=== PATIENT | male | born 1950 | race Caucasian/White ===

== ENCOUNTER → 2016-08-02 | Outpatient (CLI) | payer OTHER ==
--- NOTE | 2016-08-02 15:03 | DX ---
Chest, PA and Lateral History: Fever and cough x5 weeks, R05, R50.81 COMPARISON: July 18, 2012 Findings: There is chronic or recurrent perihilar and retrocardiac bronchial wall thickening. There i s no focal infiltrate or consolidation. Lung volumes remain moderately prominent despite a pectus def ormity. Heart size and pulmonary vascularity are normal. There is no adenopathy or mass lesion. There is no pleural effusion or pneumothorax. There is a stable upper thoracic levoscoliosis and degenerat nunu spurring in the mid and lower thoracic spine. Impression: Chronic versus recurrent airways disease.
== END ==
LOC: FIMAGING 12:00
PROVIDERS: ATTEND Internal Medicine
DX: J44.9 Chronic obstructive pulmonary disease, unspecified (principal); R05 Cough; R50.81 Fever presenting with conditions classified elsewhere; J06.9 Acute upper respiratory infection, unspecified
CPT/HCPCS: 71020; G0463

== ENCOUNTER → 2017-01-10 | Outpatient (CLI) | payer OTHER | LOC: FIMAGING 12:00 | PROVIDERS: ATTEND Internal Medicine | DX: I71.2 Thoracic aortic aneurysm, without rupture (principal) ==